=== PATIENT | male | born 1995 | race Caucasian/White ===

== ENCOUNTER 2021-08-03 12:10 | Emergency (ER) | payer OTHER, SELFPAY ==
[2021-08-03 12:19] VITALS: BP 134/80; PULSE 74; RESP 18; TEMP 37.1; O2SAT 98; BMI 29.9
[2021-08-03 12:55] LABS: COVID19 -Nasal RAPID Negative (Negative)
--- NOTE | 2021-08-03 14:55 | ED.SOB ---
HPI - SOB/Dyspnea <ISABELLA Laird - Last Filed: 08/03/21 15:01> General Chief Complaint: Shortness of Breath/Dyspnea Stated Complaint: COVID Sypmtoms/Mild Chest Time Seen by Provider: 08/03/21 13:36 Source: patient Mode of arrival: Ambulatory Limitations: no limitations History of Present Illness HPI Narrative: This is a 25-year-old male who presents to the emergency department with concern about COVID on day two of upper respiratory symptoms including fatigue, muscle aches, congestion, mild sore throat, headache, sinus congestion. Patient denies COVID exposure recently, states last night he had excessive heartburn and has had a negative COVID test at home. Patient is COVID vaccinated x3, denies any shortness of breath, wheezing, chest pain, vomiting, diarrhea, difficulty breathing, dysuria, or fever. Related Data Previous Rx's Medication Instructions Recorded fluticasone furoate 27.5 1 spray INTRANASAL BID PRN #9.1 ml 08/03/21 mcg/actuation nasal spray,suspension guaifenesin 400 mg tablet 400 mg PO QID PRN #14 tab 08/03/21 omeprazole 20 mg capsule,delayed 20 mg PO DAILY #30 cap 08/03/21 release Allergies Allergy/AdvReac Type Severity Reaction Status Date / Time No Known Drug Allergies Allergy Verified 08/03/21 12:19 Review of Systems <ISABELLA Laird Last Filed: 08/03/21 15:01> Review of Systems Narrative: General: denies fever, chills, endorses muscle aches Head/Neck: denies headache, neck pain, endorses sore throat, congestion, runny nose Eyes: denies visual changes, eye pain Cardio: denies chest pain, palpitations Respiratory: denies shortness of breath, occasional cough GI: denies abdominal pain, nausea, vomiting, or diarrhea : denies dysuria, hematuria or flank pain MSK: denies new joint pain, muscle weakness or swelling, denies sensation changes Skin: denies rash, itching or wound Neuro: denies numbness, tingling, dizziness Patient History <ISABELLA Laird Last Filed: 08/03/21 15:01> Social History Smoking Status: Current some day smoker Smoking Status: Current some day smoker tobacco type: vaping alcohol intake frequency: a few times a week Substance Use Type: does not use Exam <ISABELLA Laird - Last Filed: 08/03/21 15:01> Narrative Exam Narrative: Independently reviewed vitals signs and nursing notes. General: Awake, alert, nontoxic, no cardiorespiratory distress Head/Neck: Atraumatic, neck supple Eyes: EOMI, conjunctiva normal Nose: nares patent, no rhinorrhea Mouth/Throat: moist mucus membranes, posterior pharynx without erythema or lesion Cardio: Regular rate and rhythm, no peripheral edema Respiratory: respirations unlabored without wheezing, stridor, or rales. No retractions, hypoxia or tachypnea, no increased work of breathing or wheezing. GI: Abdomen soft, nontender to palpation x4 quadrants, no guarding or rebound tenderness MSK: Moves all extremities, neurovascularly intact, range of motion without deficit Skin: Normal capillary refill, no rash Neuro: Normal speech and cognition, normal gait Initial Vital Signs Initial Vital Signs: Vital Signs Temperature 98.7 F 08/03/21 12:19 Pulse Rate 74 08/03/21 12:19 Respiratory Rate 18 08/03/21 12:19 Blood Pressure 134/80 08/03/21 12:19 Pulse Oximetry 98 08/03/21 12:19 <Yvonne Marrero DO - Last Filed: 08/05/21 10:52> Initial Vital Signs Initial Vital Signs: Vital Signs Temperature 98.7 F 08/03/21 12:19 Pulse Rate 74 08/03/21 12:19 Respiratory Rate 18 08/03/21 12:19 Blood Pressure 134/80 08/03/21 12:19 Pulse Oximetry 98 08/03/21 12:19 Course <ISABELLA Laird - Last Filed: 08/03/21 15:01> Orders Ordered: ED Orders 08/03/21 12:26 COVID19 -Nasal RAPID/Pre-Proc Stat Vital Signs Vital signs: Vital Signs - 8 hr 08/03/21 12:19 Temperature 98.7 F Pulse Rate 74 Respiratory Rate 18 Blood Pressure 134/80 Pulse Oximetry 98 <Yvonne Marrero DO - Last Filed: 08/05/21 10:52> Orders Ordered: ED Orders 08/03/21 12:26 COVID19 -Nasal RAPID/Pre-Proc Stat Vital Signs Vital signs: Vital Signs - 8 hr 08/03/21 12:19 Temperature 98.7 F Pulse Rate 74 Respiratory Rate 18 Blood Pressure 134/80 Pulse Oximetry 98 MDM - SOB/Dyspnea <ISABELLA Laird - Last Filed: 08/03/21 15:01> Lab Data Labs: Lab Results 08/03/21 Range/Units 12:26 SARS-CoV-2 (PCR) Negative (Negative) MDM Narrative Medical decision making narrative: This is a 25-year-old male who is COVID vaccinated x3, and tested - on day 2 of symptoms without hypoxia, respiratory distress, dehydration, or focal exam to suggest secondary bacterial infection. Discussed CDC guidelines for quarantine, mask wearing, physical distancing, and infection prevention measures such as frequent handwashing. Encouraged quarantine until he is improving, he was prescribed omeprazole for acid reflux, encouraged to use guaifenesin for his productive cough, fluticasone as needed to help decrease his congestion, and use Tylenol as needed for pain and fever. Discussed supportive treatments: OTC decongestant medications and/or antihistamines for symptomatic relief. Maintain adequate fluid intake. Follow-up with PCP as directed. Return to clinic/ER instructions discussed for new, not improving, or worsening symptoms. All questions answered. <Yvonne Marrero DO - Last Filed: 08/05/21 10:52> Lab Data Labs: Lab Results 08/03/21 Range/Units 12:26 SARS-CoV-2 (PCR) Negative (Negative) Discharge Plan Departure Patient Disposition: Home Clinical Impression: Viral upper respiratory illness Instructions: DI for Viral Upper Respiratory Infection -- Adult, DI for COVID-19 (Suspected or Confirmed ), COVID-19 Viral Test Activity Restrictions/Additional Instructions: *You have been diagnosed with a negative COVID test today, you are on day two of likely an upper respiratory viral illness. Please use the medications prescribed to help mitigate your symptoms, take the omeprazole daily 1st thing in the morning, this will help reduce the amount of acid you producing her stomach. Please take the guaifenesin tabs as needed for cough and congestion, take Flonase morning and night to help reduce nasal drainage. You may try Claritin or Claritin decongestant in addition to these to help reduce your congestion. Please stay hydrated, take Tylenol as needed for fever, ibuprofen if you are having muscle aches but avoid if you have acid reflux. 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 I hope you feel better soon. *What to do: *Please continue to take your regular medications as directed. [x] New medication prescriptions sent to your pharmacy: [ [facility]] [ ] New medication written as a paper prescription [ ] No new medications given *Please follow up with your primary care provider in 2-3 days, call for an appointment. Let them know you were seen in the Emergency Department and that we asked that you be seen for follow-up. We will electronically transmit a record of today's note if your PCP is in our system *If you do not have a primary care provider please contact [phone] to establish care with one of the [facility] primary care providers. *Return to Emergency Department if you should have any new, worsening or concerning symptoms, such as [fever greater than 101F, chills, worsening pain, persistent vomiting or other bothersome symptoms] Prescriptions: New fluticasone furoate 27.5 mcg/actuation spray,suspension 1 spray intranasal BID PRN (Reason: nasal congestion) Qty: 9.1 0RF Rx Instructions: into each nostril omeprazole 20 mg capsule,delayed release(DR/EC) 20 mg PO DAILY Qty: 30 0RF Rx Instructions: Take 1st thing in the morning before coffee, food or medication guaifenesin 400 mg tablet 400 mg PO QID PRN (Reason: congestion) Qty: 14 0RF Referrals: Velasquez Weber [Primary Care Provider] - <Yvonne Marrero DO - Last Filed: 08/05/21 10:52> Cosign ED Attending Andersonature Attestation: I was immediately available in the department for consultation. Documentation has been reviewed.
== END 2021-08-03 14:07 | disposition home or self-care (01) ==
PROVIDERS: Emergency Medicine; Emergency Provider Nurse Practitioner Critical Care Medicine
DX: J06.9 Acute upper respiratory infection, unspecified (principal); Z20.822 Contact with and (suspected) exposure to COVID-19
CPT/HCPCS: 87635; 99281; 99282; C9803